=== PATIENT | female | born 1990 | race Caucasian/White ===

== ENCOUNTER → 2018-02-16 08:35 | Outpatient (CLI) | payer OTHER, SELFPAY ==
[2018-02-16 10:49] LABS: Hematocrit 36.3 % (37-47); Hemoglobin 12.4 g/dl (12.0-15.0); Mean Corp Hgb Conc 34.2 g/gl (32-36); Mean Corpuscular Hgb 31.8 pg (27.0-32.0); Mean Corpuscular Volume 93.1 fL (81-99); Mean Platelet Vol. 9.4 fl (6.2-12.0); Platelet Count 246 K/mm3 (150-450); RBC Distribution Width CV 12.9 % (11.6-14.6); RBC Distribution Width SD 42.7 fl (35.1-43.9)
[2018-02-16 10:51] LABS: Scan Indicated on CBC? Y/N NO
[2018-02-16 10:58] LABS: Glucose Challenge Gest 1H 50g 120 mg/dL (70-140)
== END ==
PROVIDERS: Visit Provider Obstetrics & Gynecology
DX: Z34.83 Encounter for supervision of other normal pregnancy, third trimester (principal)
CPT/HCPCS: 36415; 82950; 85027

== ENCOUNTER → 2018-04-04 18:02 | Outpatient (CLI) | payer OTHER, SELFPAY ==
[2018-04-04 21:01] LABS: Group B Strep DNA By PCR Negative (Negative); Internal Control PASS; Probe Check PASS; Specimen Processing Control PASS
== END ==
PROVIDERS: Visit Provider Obstetrics & Gynecology
DX: Z36.85 Encounter for antenatal screening for Streptococcus B (principal)
CPT/HCPCS: 87081; 87653

== ENCOUNTER 2018-05-05 08:10 | Inpatient (IN) | payer OTHER, SELFPAY ==
[2018-05-05 06:00] VITALS: BMI 26.5
[2018-05-05] MEDS: Lactated Ringers 1,000 ML 50 ML IV ×3 (09:00→18:35)
[2018-05-05 09:08] LABS: Hematocrit 38.2 % (37-47); Hemoglobin 13.4 g/dl (12.0-15.0); Mean Corp Hgb Conc 35.1 g/gl (32-36); Mean Corpuscular Hgb 31.7 pg (27.0-32.0); Mean Corpuscular Volume 90.3 fL (81-99); Mean Platelet Vol. 9.9 fl (6.2-12.0); Platelet Count 221 K/mm3 (150-450); RBC Distribution Width CV 12.3 % (11.6-14.6); RBC Distribution Width SD 39.9 fl (35.1-43.9); Red Blood Count 4.23 M/mm3 (4.2-5.4)
[2018-05-05 09:10] LABS: Scan Indicated on CBC? Y/N NO
[2018-05-05] MEDS: Ondansetron 4 MG/2 ML Vial IV (15:00)
--- NOTE | 2018-05-05 15:42 | PCM.PN.OB ---
Subjective: Comfortable with epidural Objective: AFeb VSS FHR tracing Cat 1 - Physical Exam General: Alert, Oriented x3, Cooperative, No apparent distress Lungs: Clear to auscultation, Normal air movement Cardiovascular: Regular rate, Regular Rhythm Abdomen: Non Tender, Gravid, Appropriate for Gestational Age Extremities: No edema Skin: No rashes Neurological: Neuro grossly intact Psych/Mental Status: Normal Affect Comment: CE / Weight: 149 lb 14.629 oz Body Mass Index (BMI) 26.5 Laboratory Tests Past 24 Hrs 05/05/18 05/05/18 08:50 08:50 WBC 11.0 RBC 4.23 Hgb 13.4 Hct 38.2 MCV 90.3 MCH 31.7 MCHC 35.1 RDW 12.3 RDW Differential 39.9 Plt Count 221 MPV 9.9 Blood Type A POSITIVE Antibody Screen NEGATIVE Medical Necessity - Tobacco Use Smoking Status: Never smoker Assessment/Plan Progressing in labor. May need pitocin augmentation.
--- NOTE | 2018-05-05 17:40 | PCM.PN.OB ---
Subjective: Comfortable with epidural. Objective: AFeb VSS FHR tracing CAT 1 - Physical Exam General: Alert, Oriented x3, Cooperative, No apparent distress Cardiovascular: Regular rate, Regular Rhythm Abdomen: Soft, Non Tender, Gravid, Appropriate for Gestational Age Extremities: No edema Neurological: Neuro grossly intact Psych/Mental Status: Normal Affect Comment: FD 0 station Weight: 149 lb 14.629 oz Body Mass Index (BMI) 26.5 Laboratory Tests Past 24 Hrs 05/05/18 05/05/18 08:50 08:50 WBC 11.0 RBC 4.23 Hgb 13.4 Hct 38.2 MCV 90.3 MCH 31.7 MCHC 35.1 RDW 12.3 RDW Differential 39.9 Plt Count 221 MPV 9.9 Blood Type A POSITIVE Antibody Screen NEGATIVE Medical Necessity - Tobacco Use Smoking Status: Never smoker Assessment/Plan Will start pushing efforts. Expect .
--- NOTE | 2018-05-05 19:18 | PCM.DCVAG ---
Discharge Diet: No Restrictions Discharge Activity: Return to Normal Activity, May Not Drive, May Shower Return to work on:: 07/03/18 May shower in (days): 0 May resume sexual activity in: 4-6 weeks Call your doctor if your incision/area has: Sudden Increased Bleeding, Increased Pain/ Swelling, Foul Smelling Discharge Call your doctor if you observe: Fever of 101 or Higher, Inability to urinate, Inability to have a bowel movement, Using more than one pad per hour, Shortness of breath, Chest pain, Calf discomfort, Uncontrolled pain Cleanse incision/area with: Soap & Water Additional Instructions: If you experience any of the following, contact your healthcare provider. Bleeding that soaks a pad every hour for 2 hours Fever 100.4 or higher Unrelieved incision or abdominal pain Swelling, redness, discharge or bleeding from your incision or episiotomy site Your incision begins to separate Problems urinating (including inability to urinate or burning while urinating). Visual changes Severe headache Flu-like symptoms Pain or redness in one of both of your breasts Pain, warmth, tenderness or swelling in your legs, especially the calf area Frequent nausea and vomiting Symptoms of depression or anxiety If you experience any of the following, call 911 or go to the nearest Emergency Room. Chest pain Problems breathing Seizure activity Partial or complete paralysis of a body part, slurred speech, weakness or drooping of the face, or a sudden inability to walk or hold your balance Allergies/Adverse Reactions: Allergies No Known Allergies Allergy (Verified 05/05/18 07:34) Medications to take at Discharge Acetaminophen [Tylenol] 325 mg PO Q8H 05/05/18 Ibuprofen 600 mg PO Q6H PRN PRN #30 tab 05/05/18 Pantoprazole Sodium [Protonix] 20 mg PO DAILY 05/05/18 Vits [Prenatabs FA ] 1 tablet PO DAILY 05/05/18 The following prescriptions were given: Ibuprofen 600 mg PO Q6H PRN PRN #30 tab PRN Reason: pain or cramping Please Follow Up With: Cecilio Manriquez MD When: 6 weeks Primary Care Physician: Marco Antonio Sung DO [Primary Care Provider] - Test Results: Test results from this visit will be discussed in further detail at your follow-up appointment, if applicable. Proposed Discharge Date: 05/07/18
[2018-05-05] MEDS: Oxytocin 30 units/NS 500 ml 30 UNITS/500 ML IV.SOLN 334 UNITS IV (19:51)
--- NOTE | 2018-05-05 20:05 | PCM.OB.VAG ---
Vaginal Delivery Maternal Presentation: Active Labor 40w0d ega admitted in active labor Amniotic Membrane Rupture Type: Artificial Rupture of Membrane time: 1015 Amniotic Fluid Description: Clear Final RUPINDER: 05/05/18 Final RUPINDER Source: US <20 weeks Gestational age: 40 Weeks and 0 Days Date of Procedure: 05/05/18 Pre-Operative Diagnosis: Labor Post-Operative Diagnosis: Same Surgery/ Procedure Performed: Spontaneous Vaginal Delivery Anesthesiologist: Joseph Ramírez Type of Anesthesia: Epidural Description of Procedure: Aylin presented at 4 cm dilated. She progressed over the next 10 hours to FD then pushed for about 2 1/2 hours to deliver a live female with APGARS 9/9. Delayed cord clamping was employed. Once the cord was clamped and cut the baby was placed on mom's chest for skin to skin. The umbilical cord evulsed with just gentle traction. The placenta was delivered manually. The uterus contracted well. The placenta was inspected and found to be intact. The upper vagina and cervix were inspected and found to be intact. A small first degree posterior vaginal tear was repaired with 2-0 vicryl. Presentation: Vertex Placental Delivery Description: Spontaneous Placenta Disposition: [facility] Percentage of Placenta Abruption: 0 Cord Vessel Description: 3 Vessels Nuchal Cord Compression: Without compression Cord Entanglement: None Drain: Edmonds to straight drain Estimated Blood Loss: 300cc Infant A gender: Female (1 minute): 9 (5 minute): 9 Episiotomy Description: None Laceration: None Medications given after delivery: IV Pitocin Complications: None
[2018-05-05] MEDS: Oxytocin 30 units/NS 500 ml 30 UNITS/500 ML IV.SOLN 167 UNITS IV (20:30)
[2018-05-05] MEDS: Acetaminophen 500 MG Tablet 1000 MG PO (21:31)
[2018-05-05 23:36] VITALS: BP 119/60; PULSE 80; RESP 16; TEMP 36.4
[2018-05-06] MEDS: Ibuprofen 600 MG Tablet PO ×3 (03:40→22:01)
[2018-05-06 03:41] VITALS: BP 114/70; PULSE 79; RESP 16; TEMP 36.6
[2018-05-06 06:14] LABS: Hematocrit 33.6 % (37-47); Hemoglobin 11.9 g/dl (12.0-15.0); Mean Corp Hgb Conc 35.4 g/gl (32-36); Mean Corpuscular Hgb 32.5 pg (27.0-32.0); Mean Corpuscular Volume 91.8 fL (81-99); Mean Platelet Vol. 9.3 fl (6.2-12.0); Platelet Count 185 K/mm3 (150-450); RBC Distribution Width CV 12.5 % (11.6-14.6); Red Blood Count 3.66 M/mm3 (4.2-5.4); White Blood Count 16.3 K/mm3 (4.4-11.0)
[2018-05-06 06:15] LABS: Scan Indicated on CBC? Y/N NO
--- NOTE | 2018-05-06 08:14 | PCM.PN.OB ---
Subjective: No complaints. Breast feeding. Bleeding appropriate. Objective: Afeb VSS - Physical Exam General: Alert, Oriented x3, Cooperative, No apparent distress Lungs: Clear to auscultation, Normal air movement Cardiovascular: Regular rate, Regular Rhythm Abdomen: Soft, Non Tender, Non-Distended, - - Fundus firm nontender Extremities: No edema, No Calf Tenderness Skin: No rashes Neurological: Neuro grossly intact Psych/Mental Status: Normal Affect Comment: Lochia light Vital Signs Temp Pulse Resp BP 97.9 F 79 16 114/70 05/06/18 03:41 05/06/18 03:41 05/06/18 03:41 05/06/18 03:41 Oxygen Delivery Method Room Air Weight: 149 lb 14.629 oz Body Mass Index (BMI) 26.5 Intake and Output for Last 24 Hours 05/04/18 05/05/18 05/06/18 23:59 23:59 23:59 Output Total 1800 / 1800 650 / 650 Balance -1800 / -1800 -650 / -650 Laboratory Tests Past 24 Hrs 05/05/18 05/05/18 05/06/18 08:50 08:50 06:00 WBC 11.0 16.3 H RBC 4.23 3.66 L Hgb 13.4 11.9 L Hct 38.2 33.6 L MCV 90.3 91.8 MCH 31.7 32.5 H MCHC 35.1 35.4 RDW 12.3 12.5 RDW Differential 39.9 41.0 Plt Count 221 185 MPV 9.9 9.3 Blood Type A POSITIVE Antibody Screen NEGATIVE Medical Necessity - Tobacco Use Smoking Status: Never smoker Assessment/Plan Doing well on PP day#1. Continue routine PP care.
[2018-05-06 09:59] VITALS: BP 122/73; PULSE 68; RESP 16; TEMP 36.9
[2018-05-06] MEDS: Prenatal Vits Tablet 1 TABLET PO (10:20)
[2018-05-06] MEDS: Senna/Docusate Sodium 1 Tablet PO (10:20)
[2018-05-06] MEDS: Dibucaine 30 GM Tube 1 APPLIC TOPICAL (10:50)
[2018-05-06 12:30] VITALS: BP 114/74; PULSE 72; RESP 18; TEMP 36.4
[2018-05-06 16:30] VITALS: BP 126/68; PULSE 72; RESP 12; TEMP 36.8
[2018-05-06] MEDS: Acetaminophen 500 MG Tablet 1000 MG PO (16:44)
[2018-05-06 20:15] VITALS: BP 116/68; PULSE 75; RESP 16; TEMP 36.6; O2SAT 97
[2018-05-07 02:05] VITALS: BP 104/55; PULSE 70; RESP 16; TEMP 36.4; O2SAT 97
[2018-05-07 07:53] VITALS: BP 111/73; PULSE 80; RESP 16; TEMP 36.8
--- NOTE | 2018-05-07 08:10 | PCM.PN.OB ---
Subjective: No specific complaints. Breast feeding. Bleeding light. Objective: Afeb VSS - Physical Exam General: Alert, Oriented x3, Cooperative, No apparent distress Lungs: Clear to auscultation, Normal air movement Cardiovascular: Regular rate, Regular Rhythm Abdomen: Soft, Non Tender, Non-Distended, - - Fundus nontender Extremities: No edema, No Calf Tenderness Skin: No rashes Neurological: Neuro grossly intact Psych/Mental Status: Normal Affect Comment: lochia light Vital Signs Temp Pulse Resp BP Pulse Ox 98.3 F 80 16 111/73 97 05/07/18 07:53 05/07/18 07:53 05/07/18 07:53 05/07/18 07:53 05/07/18 02:05 Oxygen Delivery Method Room Air Weight: 149 lb 14.629 oz Body Mass Index (BMI) 26.5 Intake and Output for Last 24 Hours 05/05/18 05/06/18 05/07/18 23:59 23:59 23:59 Output Total 1800 / 1800 650 / 650 Balance -1800 / -1800 -650 / -650 Medical Necessity - Tobacco Use Smoking Status: Never smoker Assessment/Plan Doing well on PP day#2. Cleared for diacharge home today. Home going instructions and warnings given.
--- NOTE | 2018-05-07 08:11 | PCM.DC.SUM ---
Discharge Date and Diagnosis Date of Admission: 05/05/18 Date of Discharge: 05/07/18 - Primary Discharge Diagnosis S/P Hospital Course and Treatment Consultations 05/05/18 08:19 Consult: Anesthesia Routine Comment: Reason For Exam: LABOR Operations: None Procedures: - - Epidural, Summary of Care Provided: The patient is a 27 year old F [ admitted in active labor at 40 weeks. Progressed to FD pushed for 2 hours to deliver a live without complication. Post course unremarkable. Discharged home on PP day#2.] Discharge Diet: No Restrictions Discharge Activity: Return to Normal Activity, May Not Drive, May Shower Return to work on:: 07/03/18 May shower in (days): 0 May resume sexual activity in: 4-6 weeks Call your doctor if your incision/area has: Sudden Increased Bleeding, Increased Pain/ Swelling, Foul Smelling Discharge Call your doctor if you observe: Fever of 101 or Higher, Inability to urinate, Inability to have a bowel movement, Using more than one pad per hour, Shortness of breath, Chest pain, Calf discomfort, Uncontrolled pain Cleanse incision/area with: Soap & Water Home Medications: Medications to take at Discharge Acetaminophen [Tylenol] 325 mg PO Q8H 05/05/18 Ibuprofen 600 mg PO Q6H PRN PRN #30 tab 05/05/18 Pantoprazole Sodium [Protonix] 20 mg PO DAILY 05/05/18 Vits [Prenatabs FA ] 1 tablet PO DAILY 05/05/18 Following Prescrptions Were Given to Patient: Ibuprofen 600 mg PO Q6H PRN PRN #30 tab PRN Reason: pain or cramping Primary Care Physician: Marco Antonio Sung DO [Primary Care Provider] - Please Follow Up With: Cecilio Manriquez MD When: 6 weeks Disposition: Home Minutes spent on discharge:: 15 Patient Condition:: Good Medical Necessity - Tobacco Use Smoking Status: Never smoker Meaningful Use Info Meaningful Use Diagnoses (Choose all that apply): None applicable
[2018-05-07] MEDS: Prenatal Vits Tablet 1 TABLET PO (09:55)
[2018-05-07] MEDS: Ibuprofen 600 MG Tablet PO (09:56)
[2018-05-07] MEDS: Senna/Docusate Sodium 1 Tablet PO (09:56)
[2018-05-07 12:30] VITALS: BP 126/75; PULSE 75; RESP 16; TEMP 36.4
== END 2018-05-07 12:40 | disposition home or self-care (01) | DRG 775 ==
LOC: WPOUT 08:17 → WP 08:19
PROVIDERS: Admitting Provider Obstetrics & Gynecology; Family Provider Student in an Organized Health Care Education/Training Program; PCP Student in an Organized Health Care Education/Training Program; Visit Provider Obstetrics & Gynecology
DX: O70.0 First degree perineal laceration during delivery (principal); Z3A.40 40 weeks gestation of pregnancy; Z37.0 Single live birth
CPT/HCPCS: 59025; 59050; 85027; 86850; 86900; 99218; J7120; G0378; J2405

== ENCOUNTER → 2019-10-10 07:48 | Outpatient (CLI) | payer OTHER, SELFPAY ==
[2019-10-10 08:52] LABS: Hematocrit 36.6 % (37-47); Hemoglobin 12.6 g/dL (12.0-15.0); Mean Corp Hgb Conc 34.4 g/dL (32-36); Mean Corpuscular Hgb 29.6 pg (27.0-32.0); Mean Corpuscular Volume 85.9 fL (81-99); Mean Platelet Vol. 9.4 fl (6.2-12.0); Platelet Count 268 K/mm3 (150-450); RBC Distribution Width CV 12.6 % (11.6-14.6); RBC Distribution Width SD 38.8 fl (35.1-43.9); Red Blood Count 4.26 M/mm3 (4.2-5.4); White Blood Count 7.3 K/mm3 (4.4-11.0)
[2019-10-10 08:57] LABS: Amphetamine Urine VISTA NEGATIVE (<1000 ng/mL); Barbiturate Urine VISTA NEGATIVE (< 200 ng/mL); Benzodiazepine Urine VISTA NEGATIVE (< 200 ng/mL); Cocaine Urine VISTA NEGATIVE (< 300 ng/mL); Ecstacy Urine VISTA NEGATIVE (< 500 ng/mL); Methadone Urine VISTA NEGATIVE (< 300 ng/mL); PCP Urine VISTA NEGATIVE (< 25 ng/mL); THC Urine VISTA NEGATIVE (< 50 ng/mL); Vista UDS pH Range 5
[2019-10-10 10:12] LABS: HIV - WCH Non-Reactive (Nonreactive); Hepatitis B Surface Antigen Non-Reactive (Nonreactive); Hepatitis C Antibody Non-Reactive (Nonreactive)
== END ==
PROVIDERS: PCP Student in an Organized Health Care Education/Training Program; Referring Provider Obstetrics & Gynecology; Visit Provider Obstetrics & Gynecology
DX: Z34.81 Encounter for supervision of other normal pregnancy, first trimester (principal); Z3A.08 8 weeks gestation of pregnancy
CPT/HCPCS: 80307; 85027; 86703; 86762; 86803; 86850; 86900; 86901; 87086; 87340

== ENCOUNTER → 2019-10-26 11:26 | Outpatient (CLI) | payer OTHER, SELFPAY | PROVIDERS: PCP Student in an Organized Health Care Education/Training Program; Referring Provider Obstetrics & Gynecology; Visit Provider Obstetrics & Gynecology | DX: Z36.9 Encounter for antenatal screening, unspecified (principal) | CPT/HCPCS: 36415 ==

== ENCOUNTER → 2019-12-02 05:48 | Outpatient (CLI) | payer OTHER, SELFPAY | PROVIDERS: PCP Student in an Organized Health Care Education/Training Program; Referring Provider Obstetrics & Gynecology; Visit Provider Obstetrics & Gynecology | DX: Z36.9 Encounter for antenatal screening, unspecified (principal) ==

== ENCOUNTER → 2020-02-18 15:43 | Outpatient (CLI) | payer OTHER, SELFPAY ==
[2020-02-18 17:29] LABS: Absolute Lymphocyte Count 1.64 X10^3/uL (0.83-4.51); Absolute Neutrophil Count 7.8 X10^3/uL (2.0-7.7); Basophil# 0.02 X10^3/uL; Basophil% 0.2 % (0-1); Eosinophil# 0.05 X10^3/uL; Eosinophils% 0.5 % (0-5); Hematocrit 38.3 % (37-47); Hemoglobin 12.8 g/dL (12.0-15.0); Lymphocyte # 1.64 X10^3/ul (4.0); Lymphocyte % 16.2 % (19-41); Mean Corp Hgb Conc 33.4 g/dL (32-36); Mean Corpuscular Hgb 31.5 pg (27.0-32.0); Mean Corpuscular Volume 94.3 fL (81-99); Mean Platelet Vol. 9.2 fl (6.2-12.0); Monocyte# 0.52 X10^3/uL; Monocyte% 5.1 % (0-10); NRBC Flagged by Analyzer 0 % (0-5); Neutrophil # 7.83 X10^3/uL (2.7-7.7); Neutrophil % 77.5 % (47-70); Platelet Count 244 K/mm3 (150-450); RBC Distribution Width CV 12.6 % (11.6-14.6); RBC Distribution Width SD 43.3 fl (35.1-43.9); Red Blood Count 4.06 M/mm3 (4.2-5.4); White Blood Count 10.1 K/mm3 (4.4-11.0)
[2020-02-18 18:17] LABS: Glucose Challenge Gest 1H 50g 153 mg/dL (70-140)
[2020-02-21 02:00] LABS: Rapid Plasmin Reagin (RPR) NONREACTIVE (NONREACTIVE)
== END ==
PROVIDERS: PCP Student in an Organized Health Care Education/Training Program; Referring Provider Obstetrics & Gynecology; Visit Provider Obstetrics & Gynecology
DX: Z34.80 Encounter for supervision of other normal pregnancy, unspecified trimester (principal)
CPT/HCPCS: 36415; 82950; 85025; 86592

== ENCOUNTER → 2020-02-25 08:47 | Outpatient (CLI) | payer OTHER, SELFPAY ==
[2020-02-25 11:02] LABS: Glucose GTT-Gestation. Fasting 75 mg/dL (<105)
[2020-02-25 11:04] LABS: Glucose GTT-Gestational 1 Hr 150 mg/dL (<190)
[2020-02-25 11:38] LABS: Glucose GTT-Gestational 2 Hr 116 mg/dL (<165)
[2020-02-25 13:24] LABS: Glucose GTT-Gestational 3 Hr 125 L (<145)
== END ==
PROVIDERS: PCP Student in an Organized Health Care Education/Training Program; Referring Provider Obstetrics & Gynecology; Visit Provider Obstetrics & Gynecology
DX: O99.810 Abnormal glucose complicating pregnancy (principal); Z3A.00 Weeks of gestation of pregnancy not specified
CPT/HCPCS: 36415; 82951; 82952

== ENCOUNTER 2020-05-12 01:36 | Inpatient (IN) | payer OTHER, SELFPAY ==
[2020-05-12] VITALS (18 sets, daily range): BP systolic 114–141; BP diastolic 56–75; PULSE 71–95; RESP 16–17; TEMP 36.2–36.9; O2SAT 98–100; BMI 26.9
[2020-05-12] MEDS: Lactated Ringers 1,000 ML 200 ML IV (01:55)
[2020-05-12] MEDS: Lactated Ringers 500 ML 999 ML IV (01:55)
[2020-05-12] MEDS: Oxytocin 30 units/NS 500 ml 30 UNITS/500 ML IV.SOLN 334 UNITS IV (02:18)
[2020-05-12 02:25] LABS: Absolute Lymphocyte Count 3.02 X10^3/uL (0.83-4.51); Basophil# 0.02 X10^3/uL; Basophil% 0.2 % (0-1); Eosinophil# 0.03 X10^3/uL; Eosinophils% 0.2 % (0-5); Hematocrit 36.5 % (37-47); Hemoglobin 12.3 g/dL (12.0-15.0); Lymphocyte # 3.02 X10^3/ul (4.0); Lymphocyte % 24.9 % (19-41); Mean Corp Hgb Conc 33.7 g/dL (32-36); Mean Corpuscular Hgb 30.4 pg (27.0-32.0); Mean Corpuscular Volume 90.3 fL (81-99); Mean Platelet Vol. 10.3 fl (6.2-12.0); Monocyte# 0.92 X10^3/uL; Monocyte% 7.6 % (0-10); NRBC Flagged by Analyzer 0 % (0-5); Neutrophil # 8.04 X10^3/uL (2.7-7.7); Neutrophil % 66.2 % (47-70); Platelet Count 280 K/mm3 (150-450); RBC Distribution Width CV 12.5 % (11.6-14.6); Red Blood Count 4.04 M/mm3 (4.2-5.4); White Blood Count 12.1 K/mm3 (4.4-11.0)
--- NOTE | 2020-05-12 02:26 | PCM.HP.OB ---
History Date of Admission: 05/05/18 Final RUPINDER: 05/07/20 Final RUPINDER Source: US <20 weeks Gestational age: 40 Weeks and 5 Days History of this : This is a 29 year-old, at 40.5 weeks presents in active labor 5 cm bulging bag. Patient SROM and and quickly progressed to complete. Patient offers no other concerns at this time. Allergies No Known Allergies Allergy (Verified 05/05/18 07:34) Home Medications: Home Medications Acetaminophen [Tylenol] 325 mg PO Q8H 05/05/18 Ibuprofen 600 mg PO Q6H PRN PRN #30 tab 05/05/18 Pantoprazole Sodium [Protonix] 20 mg PO DAILY 05/05/18 Vits [Prenatabs FA ] 1 tablet PO DAILY 05/05/18 Smoking Status: Never smoker Alcohol: None Number of Fetus(es): 1 History Past Pregnancies: Past Pregnancies Delivery Date Name GA/ Weeks Outcome Route Wt Infant Sex Labor Length Anesthesia Delivery Location Provider FOB Expected Infant Delivery Method: Spontaneous Vaginal Physical Exam Vitals: Vital Signs Pulse BP 95 141/71 H 05/12/20 01:45 05/12/20 01:45 General: Alert, Oriented x3 Neurological: Cranial nerves II-XII grossly intact [employer]: Normal external genitalia Estimated gestational size: Appropriate for gestational size Presentation: Cephalic Cervix Dilation (cm): 10 Station: 2 Effacement (%): 100 Assessment/Plan This is a 29 year-old, G 2P1 @ 40.5 weeks- active labor 1) admit to L&D 2) monitor fhr/toco 3) anticipate
--- NOTE | 2020-05-12 02:29 | PCM.OPRPT ---
Vaginal Delivery Maternal Presentation: Active Labor Amniotic Membrane Rupture Type: Spontaneous Amniotic Fluid Description: Clear Final RUPINDER: 05/07/20 Final RUPINDER Source: US <20 weeks Gestational age: 40 Weeks and 5 Days Date of Procedure: 05/12/20 Pre-Operative Diagnosis: term gestation, active labor Post-Operative Diagnosis: same, preciptious devliery, live female infant Surgery/ Procedure Performed: Spontaneous Vaginal Delivery Type of Anesthesia: None Description of Procedure: Pt was complete upon my arrival. Good maternal pushing efforts delivered the head followed by gentle downward traction to deliver the anterior and posterior shoulder. The infant was placed on the mother's chest for immediate skin the skin. Infant was vigorous. Delayed cord clamping performed. Placenta was delivered intact without complication. Vaginal exam performed and no lacerations appreciated. Presentation: Vertex Placental Delivery Description: Spontaneous Placenta Disposition: [facility] Cord Entanglement: None Estimated Blood Loss: 100 Infant A gender: Female (1 minute): 8 (5 minute): 9 Episiotomy Description: None Laceration: None Medications given after delivery: IV Pitocin Complications: None
[2020-05-12] MEDS: Ibuprofen 600 MG Tablet PO ×3 (02:59→17:54)
[2020-05-12] MEDS: Dibucaine 30 GM Tube 1 APPLIC TOPICAL (08:18)
[2020-05-13 01:42] VITALS: BP 124/77; PULSE 70; RESP 18; TEMP 36.7
[2020-05-13 01:43] VITALS: BP 124/77; PULSE 70
[2020-05-13] MEDS: Ibuprofen 600 MG Tablet PO (02:12)
--- NOTE | 2020-05-13 05:44 | DCINST_ITS ---
Discharge Diet: No Restrictions Discharge Activity: Return to Normal Activity, May not drive while taking narcotic pain medications., May Shower May resume sexual activity in: 4-6 weeks Additional Activity Instructions:: Nothing in the vagina for 4-6 weeks. You may return to work/school in 6 weeks. Call your doctor if your incision/area has: Continuous Slow Oozing, Sudden Increased Bleeding, Increased Pain/ Swelling, Increased Redness, Foul Smelling Discharge Additional Instructions: If you experience any of the following, contact your healthcare provider. * Bleeding that soaks a pad every hour for 2 hours * Fever 100.4 or higher * Unrelieved incision or abdominal pain * Swelling, redness, discharge or bleeding from your incision or episiotomy site * Your incision begins to separate * Problems urinating (including inability to urinate or burning while urinating). * Visual changes * Severe headache * Flu-like symptoms * Pain or redness in one of both of your breasts * Pain, warmth, tenderness or swelling in your legs, especially the calf area * Frequent nausea and vomiting * Symptoms of depression or anxiety If you experience any of the following, call 911 or go to the nearest Emergency Room. * Chest pain * Problems breathing * Seizure activity * Partial or complete paralysis of a body part, slurred speech, weakness or drooping of the face, or a sudden inability to walk or hold your balance Allergies/Adverse Reactions: Allergies No Known Allergies Allergy (Verified 05/05/18 07:34) Medications to take at Discharge Acetaminophen [Tylenol] 325 mg PO Q8H 05/05/18 Ibuprofen 600 mg PO Q6H PRN PRN #30 tab 05/05/18 Pantoprazole Sodium [Protonix] 20 mg PO DAILY 05/05/18 Vits [Prenatabs FA ] 1 tablet PO DAILY 05/05/18 Please Follow Up With: Imelda Quiroz DO - [phone] When: 1-2 (can be virtual) and 6 weeks or as needed. Primary Care Physician: Marco Antonio Sung DO [Primary Care Provider] - Test Results: Test results from this visit will be discussed in further detail at your follow- up appointment, if applicable.
[2020-05-13 08:50] VITALS: BP 116/79; PULSE 96; RESP 16; TEMP 36.6
--- NOTE | 2020-05-13 08:57 | PCM.PN.OB ---
Subjective: Pain well controlled, average lochia. No new complaints. Desires discharge home today. - Physical Exam Vitals/I&O's: Vital Signs Temp Pulse Resp BP Pulse Ox 98.1 F 70 18 124/77 H 98 05/13/20 01:42 05/13/20 01:43 05/13/20 01:42 05/13/20 01:43 05/12/20 20:17 Oxygen Delivery Method Room Air Weight: 69 kg Body Mass Index (BMI) 26.9 Intake and Output for Last 24 Hours 05/11/20 05/12/20 05/13/20 23:59 23:59 23:59 Intake Total 897.88 / 897.88 Output Total 400 / 400 Balance 497.88 / 497.88 General: Alert, Cooperative, No apparent distress Current Medications Acetaminophen (Tylenol) 1,000 mg PO Q8H PRN PRN PRN Reason: Pain Score 1-3/10 Bisacodyl (Dulcolax) 10 mg RECTAL UD PRN PRN Reason: If no BM Dibucaine (Dibucaine) 1 applic TOPICAL TID PRN PRN; Protocol PRN Reason: Discomfort Last Admin: 05/12/20 08:18 Dose: 1 tube Documented by: Hydrocortisone (Hytone) 1 applic TOPICAL TID PRN PRN; Protocol PRN Reason: Discomfort Ibuprofen (Motrin) 600 mg PO Q6H PRN PRN PRN Reason: Pain Score 1-3/10 Last Admin: 05/13/20 02:12 Dose: 600 mg Documented by: Methylergonovine Maleate (Methergine) 0.2 mg IM X1 PRN PRN Reason: Excess bleeding/uterine atony Ondansetron HCl (Zofran) 4 mg IV Q4H PRN PRN PRN Reason: Nausea Oxycodone HCl (Oxyir) 5 - 10 mg PO Q4H PRN PRN PRN Reason: Pain Score 4-10/10 Senna/Docusate Sodium (Senokot-S, Alyson-Colace) 1 - 2 tablet PO DAILY PRN PRN PRN Reason: Constipation Simethicone (Mylicon) 80 mg PO PCHS PRN PRN Reason: Indigestion/Stomach pain Sodium Chloride () 5 - 15 ml IV UD PRN PRN Reason: SALINE FLUSH Medical Necessity - Tobacco Use Smoking Status: Never smoker Assessment/Plan day #1 status post vaginal delivery. is breast-feeding and doing well. Patient desires discharge home. Declines prescriptions.
[2020-05-13 09:03] VITALS: BP 116/79; PULSE 96
== END 2020-05-13 11:50 | disposition home or self-care (01) | DRG 807 ==
PROVIDERS: Admitting Provider Obstetrics & Gynecology; PCP Student in an Organized Health Care Education/Training Program; Referring Provider Obstetrics & Gynecology; Visit Provider Obstetrics & Gynecology
DX: O62.3 Precipitate labor (principal); Z79.899 Other long term (current) drug therapy; Z3A.40 40 weeks gestation of pregnancy; Z37.0 Single live birth
CPT/HCPCS: 59025; 59050; 85025; 86850; 86900; 86901; 99218; J7120; G0378

== ENCOUNTER → 2021-08-27 | Outpatient (CLI) | payer OTHER, SELFPAY | END | disposition home or self-care (01) | PROVIDERS: PCP Student in an Organized Health Care Education/Training Program; Visit Provider Physician Assistant Medical | DX: Z11.52 Encounter for screening for COVID-19 (principal) | CPT/HCPCS: 87635; U0003; U0005 ==

== ENCOUNTER 2021-11-13 14:59 | Outpatient (CLI) | payer OTHER, SELFPAY ==
--- NOTE | 2021-11-13 15:02 | US_ITS ---
STUDY: ULTRASOUND TRANSVAGINAL CLINICAL: Female, 31 years old. IUD PLACEMENT TECHNIQUE: Transvaginal COMPARISON: None. FINDINGS: Normal uterine size measuring 8.1 x 5.6 x 3.2 cm in maximal craniocaudal dimension. There are no myometrial masses. Normal endometrial thickness measuring 6 mm. There are no endometrial masses, and there is no fluid in the endometrial cavity. Intrauterine contraceptive device identified in the fundal endometrial canal with stranding extending to the lower uterine segment. Normal uterine cervix. Normal right ovary, measuring 2.0 x 1.8 x 2.3 cm. There are multiple follicles without a dominant cyst. Normal left ovary, measuring 3.3 x 2.2 x 2.3 cm. There are multiple follicles without a dominant cyst. There is no free fluid in the pelvis. US/Transvaginal Non- IMPRESSION: IUD, as above. Electronically Signed: Lopez Gibson MD (Bro[place]) at 15:44 EDT Reading Location ID and State: [id number] , Service support ,
== END 2021-11-13 23:59 | disposition home or self-care (01) ==
PROVIDERS: PCP Student in an Organized Health Care Education/Training Program; Referring Provider Obstetrics & Gynecology; Visit Provider Obstetrics & Gynecology
DX: Z97.5 Presence of (intrauterine) contraceptive device (principal)
CPT/HCPCS: 76830

== ENCOUNTER → 2022-02-04 | Outpatient (CLI) | payer OTHER, SELFPAY ==
[2022-02-04 11:03] LABS: Vitamin B12 844 pg/mL (211-911); Vitamin D,25 Hydroxy 32.7 ng/mL
[2022-02-04 11:13] LABS: Free T3 2.9 pg/mL (2.18-3.98); T4 Free Direct 0.88 ng/dL (0.76-1.46); Thyroid Stim Hormone (TSH) 0.93 uIU/mL (0.358-3.74)
== END | disposition home or self-care (01) ==
LOC: LAB 09:52
PROVIDERS: PCP Student in an Organized Health Care Education/Training Program; Visit Provider Student in an Organized Health Care Education/Training Program
DX: Z00.00 Encounter for general adult medical examination without abnormal findings (principal)
CPT/HCPCS: 82306; 82607; 84439; 84443; 84481

== ENCOUNTER → 2023-12-30 | Outpatient (CLI) | payer OTHER, SELFPAY ==
--- NOTE | 2023-12-30 14:35 | BI_ITS ---
MAMMOGRAPHY - BILATERAL DIAGNOSTIC REASON FOR EXAM: Female, 33 years old. Left lateral breast pain with menses. PERTINENT HISTORY: Grandmother with breast cancer. TECHNIQUE: Digital bilateral breast morgan (3D mammographic acquisition) in the CC and MLO projections. 2-D mediolateral oblique (MLO) and craniocaudad (CC) views of both breasts were obtained. CAD: Full Field Digital Mammography with Computer Added Detection was performed. COMPARISON: None. Baseline examination. FINDINGS: Breast Composition: The breasts are heterogeneously dense, which may obscure small masses. There are no dominant masses or suspicious calcifications. Small benign-appearing bilateral axillary lymph nodes. No other significant abnormalities are identified. BI/DIAG MAMM W/CAD, BILAT IMPRESSION: Negative diagnostic mammogram. With the patient''s history of pain in the upper outer quadrant of the left breast, correlation with ultrasound is recommended. ASSESSMENT CATEGORY: BIRADS Category 0: Incomplete. Need additional imaging evaluation. A letter regarding these results will be sent to the patient by the facility within 30 days. Approximately 10% of breast cancers are not detected by mammography. A normal mammogram should not delay biopsy of a clinically suspicious abnormality. Electronically Signed: Sam Tamez MD at 9:03 EDT ,
--- NOTE | 2023-12-30 14:35 | US_ITS ---
INDICATION: LEFT BREAST PAIN EXAMINATION: LEFT US Breast Unilateral Limited TECHNIQUE: Routine edmond scale and color-doppler imaging was performed of the bilateral breasts. COMPARISON: None. FINDINGS: Limited evaluation of the region of interest was performed, 2-4 o''clock region of left breast. Ovoid hypoechoic lesion with central hyperechoic tissue located within region of clinical concern and symptoms at 2:00 of left breast, approximately 8 cm from nipple. Lesion is 12 x 11 mm transverse dimension with AP diameter of 6 mm, most consistent with lymph node. No organized fluid collection demonstrated. US/Breast Limited Unilateral IMPRESSION: Slightly prominent lymph node within region of clinical concern and symptoms at 2:00 of left breast. ASSESSMENT CATEGORY: BIRADS Category 0: Incomplete: Need Additional Imaging Evaluation and/or Prior Mammograms for Comparison. FOLLOW UP RECOMMENDATION: Any additional follow-up should be coordinated at dedicated breast imaging center. This examination was performed solely on emergent basis for detection of breast abscess. NOTES: 7-10% of cancers are not identified by mammography. Any palpable finding should be evaluated independently of this report. Guidelines for Early Breast Cancer Detection: * Annual breast examination by a physician or other health care provider. * Monthly breast self-examination. * Annual mammography screening beginning at age 40 and continuing for as long as a woman is in good health. * Women at increased risk (e.g., family history, genetic tendency, past breast cancer) should talk with their doctors about the benefits and limitations of starting mammography screening earlier, having additional tests (e.g., breast ultrasound or MRI) or having more frequent exams. Screening MRI is recommended for women with an approximately 20-25% or greater lifetime risk of breast cancer, including women with a strong family history of breast or ovarian cancer and women who were treated for Hodgkin''s disease. Electronically Signed: Matheus Munoz MD at 22:42 EDT ,
== END | disposition home or self-care (01) ==
PROVIDERS: PCP Student in an Organized Health Care Education/Training Program; Referring Provider Obstetrics & Gynecology; Visit Provider Obstetrics & Gynecology
DX: N64.4 Mastodynia (principal)
CPT/HCPCS: 76642; 77062; 77066; G0279

== ENCOUNTER → 2024-02-13 | Outpatient (CLI) | payer OTHER, SELFPAY ==
[2024-02-13 08:26] LABS: Absolute Lymphocyte Count 2.41 X10^3/uL (0.83-4.51); Absolute Neutrophil Count 3.8 X10^3/uL (2.0-7.7); Basophil# 0.04 X10^3/uL; Basophil% 0.6 % (0-1); Eosinophil# 0.07 X10^3/uL; Hematocrit 39.9 % (37-47); Hemoglobin 13.2 g/dL (12.0-15.0); Lymphocyte # 2.41 X10^3/ul (0.83-4.51); Lymphocyte % 34.9 % (19-41); Mean Corp Hgb Conc 33.1 g/dL (32-36); Mean Corpuscular Hgb 29.5 pg (27.0-32.0); Mean Corpuscular Volume 89.1 fL (81-99); Mean Platelet Vol. 9.5 fl (6.2-12.0); Monocyte# 0.55 X10^3/uL; NRBC Flagged by Analyzer 0 % (0-5); Neutrophil # 3.76 X10^3/uL (2.7-7.7); Neutrophil % 54.5 % (47-70); Platelet Count 302 K/mm3 (150-450); RBC Distribution Width CV 12.1 % (11.6-14.6); RBC Distribution Width SD 39.5 fl (35.1-43.9); Red Blood Count 4.48 M/mm3 (4.2-5.4); White Blood Count 6.9 K/mm3 (4.4-11.0)
[2024-02-13 08:45] LABS: Hemoglobin A1c 5.1 % (3.8-5.6)
[2024-02-13 08:59] LABS: Vitamin B12 577 pg/mL (211-911); Vitamin D,25 Hydroxy 32.6 ng/mL
[2024-02-13 09:24] LABS: ALB/GLOB Ratio 1.2 RATIO (0.9-2.4); AST(SGOT) 23 U/L (15-37); Alanine Aminotransfer ALT/SGPT 35 U/L (13-56); Albumin, Serum 3.8 g/dL (3.2-5.0); Alkaline Phosphatase 74 U/L (45-117); Anion Gap 7 (5-15); BUN 19 mg/dL (7-18); BUN/Creat Ratio 27.8 RATIO (10-20); CRP < 2.90 mg/L (0.0-3.0); Calcium,Total 8.9 mg/dL (8.5-10.1); Chloride 108 mmol/L (98-107); Cholesterol 168 mg/dL (200); Creatinine, Serum 0.68 mg/dL (0.55-1.02); EST Glomerular Filtration Rate 105 mL/min (>60); Est Glom Filt Rate - Afr Amer 127 mL/min (>60); Free T3 3.1 pg/mL (2.18-3.98); Globulin 3.3 g/dL (2.2-4.2); Glucose 95 mg/dL (74-106); High Density Lipoprotein 57 mg/dL; Potassium 3.8 mmol/L (3.5-5.1); Protein, Total 7.1 g/dL (6.4-8.2); Sodium Level 139 mmol/L (136-145); T4 Free Direct 0.97 ng/dL (0.76-1.46); Thyroid Stim Hormone (TSH) 2.75 uIU/mL (0.358-3.74); Triglycerides 67 mg/dL; Very Low Density Lipoprotein 13 mg/dL (5-40)
== END | disposition home or self-care (01) ==
LOC: LAB 06:50
PROVIDERS: PCP Student in an Organized Health Care Education/Training Program; Referring Provider Student in an Organized Health Care Education/Training Program; Visit Provider Student in an Organized Health Care Education/Training Program
DX: Z00.00 Encounter for general adult medical examination without abnormal findings (principal)
CPT/HCPCS: 36415; 80053; 80061; 82306; 82607; 83036; 84439; 84443; 84481; 85025; 86140